=== PATIENT | male | born 1955 | race Caucasian/White ===

== ENCOUNTER 2019-11-30 07:09 | Day surgery (SDC) | payer OTHER ==
[2019-11-30] MEDS ORDERED: SODIUM CHLORIDE 0.9% 1000 ML 1,000 ML IV SCH (07:30)
--- NOTE | 2019-11-30 08:29 | Anesthesia Consultation ---
Anesthesia Consult and Med Hx Date of service: 11/30/19 - Airway Anesthetic Teeth Evaluation: Good ROM Head & Neck: Adequate Mental/Hyoid Distance: Adequate Mallampati Class: Class II - Pulmonary Exam CTA: Yes - Pre-Operative Health Status ASA Pre-Surgery Classification: ASA2 Proposed Anesthetic Plan: MAC - Pulmonary Hx Smoking: No Hx Respiratory Symptoms: No Hx Sleep Apnea: No - Cardiovascular System Hx Hypertension: No Hx Heart Attack/AMI: No Hx Angina: No - Central Nervous System Hx Neuromuscular Disorder: No Hx Seizures: No CVA: No - Gastrointestinal Hx Gastroesophageal Reflux Disease: No - Endocrine Hx Renal Disease: No Hx Liver Disease: No Hx Insulin Dependent Diabetes: Yes Hx Thyroid Disease: No - Other Systems Hx Alcohol Use: No Hx Substance Use: No Hx Obesity: No - Additional Comments Anesthesia Medical History Comments: Patient denies previous anesthesia complication
--- NOTE | 2019-11-30 08:30 | Anesthesia Day of Surgery ---
Anesthesia Day of Surgery - Day of Surgery Patient Examined: Yes Patient H&P Reviewed: Yes Patient is NPO: Yes Beta Blockers: No Cardiac Clearance: No Pulmonary Clearance: No
[2019-11-30] MEDS ORDERED: ONDANSETRON 4 MG/2 ML INJ ONE (09:00)
[2019-11-30] MEDS ORDERED: LIDOCAINE MPF (2%) 20 MG/1 ML VIAL 5 ML ONE (09:08)
[2019-11-30] MEDS ORDERED: propofoL 200 MG/20 ML VIAL IV ONE (09:08)
--- NOTE | 2019-11-30 09:40 | Procedure Note ---
Date of procedure: 11/30/19 Pre-op diagnosis: Colon Polyp Screening Post-op diagnosis: other (No Colon Polyps noted/ Solitary,Cecal Diverticulum) Procedure: Colonoscopy Anesthesia: MAC Surgeon: NEDRA CANTOR Estimated blood loss: none Pathology: none Condition: stable Disposition: same day (Resume home medication. Encourage fiber intake and follow up in 1 to 2 weeks ([phone]).)
--- NOTE | 2019-11-30 09:51 | Operative Report ---
Thank you for the kind referral. INDICATIONS: This is a 64-year-old [place] gentleman with a history of diabetes mellitus who has been sent for evaluation for colonoscopy as part of colon polyp screening, no history of colonoscopy prior to this. DESCRIPTION OF PROCEDURE: The procedure was done after getting informed consent. Initial rectal exam was unremarkable. Instrument was passed through the rectum onto the cecum, which was identified by the ileocecal valve and the appendiceal orifice. Cecum was also visualized on the retroverted view. There was a solitary cecal diverticula noted. No other additional pathology was noted in the cecum, ascending colon, transverse colon, descending colon, and sigmoid showed normal mucosa. There was no additional diverticular disease or polyps noted and the rectum appeared normal on the retroverted view. Visualization was fair to good. ASSESSMENT: Colon polyp screening, no colon polyps noted, solitary cecal diverticulum. PLAN: To encourage the patient to take fiber supplements. Resume home medication and follow up in the office in 1-2 weeks' time. JOB# [id number] [id number]
[2019-11-30 10:23] VITALS: BP 138/74
== END 2019-11-30 10:35 | disposition home or self-care (01) ==
LOC: GIO 07:09
DX: Z12.11 Encounter for screening for malignant neoplasm of colon (principal); K57.30 Diverticulosis of large intestine without perforation or abscess without bleeding; E11.9 Type 2 diabetes mellitus without complications; Z79.84 Long term (current) use of oral hypoglycemic drugs; Z79.4 Long term (current) use of insulin; Z79.82 Long term (current) use of aspirin; Z90.49 Acquired absence of other specified parts of digestive tract; Z79.899 Other long term (current) drug therapy
CPT/HCPCS: 45378; 82962; J2405; J2704; J7030